=== PATIENT | male | born 1955 | race Caucasian/White ===

== ENCOUNTER 2022-12-17 12:04 | Emergency (ER) | payer OTHER, SELFPAY ==
--- NOTE | ~2022-12-17 | CT_ITS ---
EXAMINATION: CT CERVICAL SPINE WITHOUT CONTRAST CLINICAL INFORMATION: Neck pain. COMPARISON: Cervical spine radiographs dated 10/31/2006. TECHNIQUE: Multiple axial images of the cervical spine were obtained without the administration of intravenous contrast. Coronal and sagittal reformatted images were obtained. This CT examination was performed using dose optimization techniques as appropriate, variously including the following: *Automated exposure control *Adjustment of mA and/or kV according to patient size (this includes techniques or standardized protocols for targeted exams where dose is matched to indication/reason for exam; i.e. extremities or head) *Use of iterative reconstruction technique DLP: 428.21 mGy-cm FINDINGS: Mild reversal the normal cervical lordosis is seen with normal spinal alignment. Mild to moderate multilevel degenerative changes are seen most pronounced at C4-C5 and C7-T1. The odontoid process is intact. Mild to moderate articulating degenerative changes are seen. Mild bilateral neural foraminal narrowing is seen at C6-C7. Mild multilevel facet arthropathy is seen. Facet fusion is seen at the C2-C3 and C3-C4 levels. The spinous and transverse processes are intact. The cervical soft tissues are unremarkable. The thyroid gland shows no significant abnormality. The lung apices are clear. CT/CT cervical spine wo IV con IMPRESSION: 1. Mild reversal the normal cervical lordosis may be secondary to positioning and/or muscle spasm. 2. Mild to moderate multilevel degenerative changes without acute abnormality.
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
[2022-12-17 12:17] VITALS: BP 156/92; PULSE 82; O2SAT 97
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
[2022-12-17 12:24] VITALS: BP 138/87; PULSE 69; RESP 18; TEMP 36.9; O2SAT 96; BMI 28.2
== END 2022-12-17 16:51 | disposition home or self-care (01) ==
PROVIDERS: Emergency Provider Emergency Medicine Emergency Medical Services
DX: S19.9XXA Unspecified injury of neck, initial encounter (principal); M54.2 Cervicalgia; R51.9 Headache, unspecified; V43.52XA Car driver injured in collision with other type car in traffic accident, initial encounter; Y93.9 Activity, unspecified; Y92.410 Unspecified street and highway as the place of occurrence of the external cause; Y99.9 Unspecified external cause status; Z79.899 Other long term (current) drug therapy
CPT/HCPCS: 70450; 72125; 99283; 99284